=== PATIENT | female | born 1975 | race Caucasian/White ===

== ENCOUNTER 2017-07-02 09:41 | Emergency (ER) | payer OTHER ==
[~2017-07-02] VITALS: Ht 160 cm; Wt 137.4 kg
[2017-07-02 09:42] VITALS: BP 148/78; PULSE 74; RESP 18; TEMP 97.8; O2SAT 98
--- NOTE | 2017-07-02 10:51 | RADRPT ---
EXAM DATE/TIME: 07/02/2017 10:25 [place] COMPARISON: No previous studies available for comparison. INDICATIONS : Right anterior knee pain & abrasion post fall 1 week ago. MEDICAL HISTORY : None. SURGICAL HISTORY : None. ENCOUNTER: Initial ACUITY: 1 week PAIN SCORE: 7/10 LOCATION: Right anterior knee FINDINGS: Four view examination of the right knee demonstrates no evidence of fracture or dislocation. Bony mi neralization is normal. The articular surfaces are intact. The suprapatellar soft tissues have a no rmal configuration. CONCLUSION: 1. No acute fracture or dislocation. Cain Marroquin MD on July 02, 2017 at 10:43 Board Certified Radiologist. This report was verified electronically.
--- NOTE | 2017-07-02 11:09 | PD ---
HPI Chief Complaint: Musculoskeletal Complaint Time Seen by Provider: 10:13 Travel History International Travel<30 days: No Contact w/Intl Traveler<30days: No Traveled to known affect area: No History of Present Illness HPI 42-year-old female presents emergency department complaining of right knee pain after a fall directly on knee approximately 1 week ago. Patient states that the knee pain has worsened over the last week which is the reason she is here today. Patient states that the pain is located on the anterior lateral aspect of the knee, worse with movement and mild to moderate in severity. Patient states that over the last couple days she has had some pain radiating from her knee up to her hip however, denies any trauma to the hip. Patient says she has had some abnormal gait as a result of this injury which is the likely reason why she has this pain. She is intolerant otherwise denies any radiation of pain from her knee. Denies previous injuries to the knee. PFSH Past Medical History ?: Not LMP: 06/11/2017 Past Surgical History Other Surgery: Yes (EAR SURG) Social History Alcohol Use: No Tobacco Use: No Substance Use: No Allergies-Medications (Allergen,Severity, Reaction): Coded Allergies: No Known Allergies (Verified Allergy, Unknown, 07/02/17) Reported Meds & Prescriptions Reported Meds & Active Scripts Active No Active Prescriptions or Reported Medications Review of Systems Except as stated in HPI: all other systems reviewed are Neg Physical Exam Narrative GENERAL: Well-nourished, well-developed patient. SKIN: Focused skin assessment warm/dry. HEAD: Normocephalic. EYES: No scleral icterus. No injection or drainage. NECK: Supple, trachea midline. No JVD or lymphadenopathy. CARDIOVASCULAR: Regular rate and rhythm without murmurs, gallops, or rubs. RESPIRATORY: Breath sounds equal bilaterally. No accessory muscle use. GASTROINTESTINAL: Abdomen soft, non-tender, nondistended. MUSCULOSKELETAL: No cyanosis, or edema. Right knee-ecchymosis present over the patella, TTP to inferolateral aspect of patella. Full range of motion. Patient is weightbearing however, has difficulty secondary to pain. BACK: Nontender without obvious deformity. No CVA tenderness. Data Data Last Documented VS Vital Signs Date Time Temp Pulse Resp B/P (MAP) Pulse Ox O2 Delivery O2 Flow Rate FiO2 07/02/17 09:42 97.8 74 18 148/78 (018) 98 Orders Orders Knee, Complete (4vws) (07/02/17 ) Ed Discharge Order (07/02/17 11:08) Support Splint (07/02/17 11:10) MDM Medical Decision Making Medical Screen Exam Complete: Yes Emergency Medical Condition: Yes Differential Diagnosis Right knee contusion, right knee fracture, bursitis Narrative Course 42-year-old female presents emergency room for evaluation of right knee knee pain after direct fall that occurred approximately 1 week ago. Patient is presents today because she is having increased pain and swelling. Vital signs are stable. Physical exam findings consistent with contusion versus fracture. Last Impressions Knee X-Ray 07/02/17 0000 Signed Impressions: Service Date/Time: Sunday, July 02, 2017 10:25 - CONCLUSION: 1. No acute fracture or dislocation. Cain Marroquin MD Patient is advised to follow-up with development disability specialist in a primary care physician for the treatment evaluation. Ronald wrap applied. RICE for care. Tylenol Motrin per package instructions for pain relief. Return for worsening or persistent symptoms. Diagnosis Primary Impression: Knee contusion Qualified Codes: S80.01XA - Contusion of right knee, initial encounter Referrals: Orthopedist Additional Instructions: Use ice or heat for symptom relief. Elevate the joint above the heart to reduce swelling. You may use compression with Ronald wrap or similar to reduce swelling. If symptoms persist or worsen, return to the emergency department. Follow up with your primary care physician within 2 days. Scripts No Active Prescriptions or Reported Meds Disposition: 01 DISCHARGE HOME Condition: Stable Angélica Crowe Jul 02, 2017 11:09
== END 2017-07-02 11:20 | disposition home or self-care (01) ==
LOC: PHEFT 09:41
DX: S80.01XA Contusion of right knee, initial encounter (principal); W19.XXXA Unspecified fall, initial encounter
CPT/HCPCS: 73564; 99283